=== PATIENT | male | born 1950 | race Caucasian/White ===

== ENCOUNTER 2018-06-26 10:38 | Emergency (ER) | payer MEDICARE ==
[2018-06-26 11:32] LABS: BILIRUBIN,URINE NEGATIVE (NEGATIVE); GLUCOSE, URINE (UA) NEGATIVE (NEGATIVE); KETONES,URINE (UA) NEGATIVE (NEGATIVE); LEUKOCYTE ESTERASE, URINE NEGATIVE (NEGATIVE); NITRITE,URINE NEGATIVE (NEGATIVE); OCCULT BLOOD,URINE MODERATE (NEGATIVE); PH,URINE 6.5 PH (5.0-7.5); PROTEIN,URINE NEGATIVE (NEGATIVE); UROBILINOGEN,URINE 0.2 (NORMAL) E.U./dL (NORMAL)
[2018-06-26 11:33] LABS: CLARITY,URINE CLEAR (CLEAR)
[2018-06-26 11:45] LABS: BASOPHILS % (AUTO) 0.5 %; EOSINOPHILS # (AUTO) 0.1 10^3/uL (0.0-0.7); EOSINOPHILS % (AUTO) 1.7 %; HGB - HEMOGLOBIN 14.2 g/dL (14.0-18.0); LYMPHOCYTES # (AUTO) 0.9 10^3/uL (1.5-3.5); LYMPHOCYTES % (AUTO) 18.6 %; MEAN CORPUSCULAR HEMOGLOBIN 30.8 pg (27.0-31.0); MEAN CORPUSCULAR HGB CONC 35.2 g/dL (32.0-36.0); MEAN CORPUSCULAR VOLUME 87.5 fL (80.0-94.0); MEAN PLATELET VOLUME 7.6 fL (7.4-11.4); MONOCYTES # (AUTO) 0.4 10^3/uL (0.0-1.0); NEUTROPHILS # (AUTO) 3.3 10^3/uL (1.5-6.6); NEUTROPHILS % (AUTO) 71.2 %; PLT - PLATELET COUNT 163 10^3/uL (130-450); RED BLOOD COUNT 4.63 10^6/uL (4.70-6.10); RED CELL DISTRIBUTION WIDTH 12.8 % (12.0-15.0); WHITE BLOOD COUNT 4.6 x10^3/uL (4.8-10.8)
[2018-06-26 11:46] LABS: ALBUMIN 4.3 g/dL (3.2-5.5); ALBUMIN/GLOBULIN RATIO 1.7 (1.0-2.2); BILIRUBIN,TOTAL 0.6 mg/dL (0.2-1.0); CALCIUM 8.5 mg/dL (8.5-10.3); CREATININE 0.8 mg/dL (0.6-1.2); TOTAL PROTEIN 6.8 g/dL (6.7-8.2)
[2018-06-26 11:53] LABS: INR 1.2 (0.8-1.2)
[2018-06-26 12:16] LABS: BACTERIA,URINE None Seen /HPF (None Seen); MUCUS,URINE Few Strands; RBC,URINE TNTC /HPF (0-5); SQUAMOUS EPITHELIAL CELL,UR RARE Squamous (<= Few)
[2018-06-26] MEDS ORDERED: IOVERSOL 320 100 ML VIAL IVP ONE ×2 (12:21→13:41)
--- NOTE | 2018-06-26 13:19 | ED Physician Documentation ---
History of Present Illness - Stated complaint Stated Complaint: R SIDE PX - Chief complaint Chief Complaint: General - Additonal information Additional information: 67-year-old male presents the emergency department with sudden onset of right flank pain which was described as severe pain that lasted 20 minutes. Presently, the patient has a dull ache in that area. The patient denies any radiation into his abdomen or Testicles. The patient denies any burning with urination, fevers or chills. The symptoms improved spontaneously on their own. No specific triggering factors. No other associated symptoms. Review of Systems Constitutional: denies: Fever, Chills, Myalgias Eyes: denies: Discharge Ears: denies: Ear pain Nose: denies: Congestion Throat: denies: Sore throat Cardiac: denies: Chest pain / pressure Respiratory: denies: Cough GI: reports: Other (flank pain). denies: Abdominal Pain : denies: Dysuria Skin: denies: Rash Musculoskeletal: denies: Neck pain Neurologic: denies: Generalized weakness PD PAST MEDICAL HISTORY - Past Medical History Past Medical History: Yes Cardiovascular: Pulmonary embolism, Other Other Past Medical History: hereditary clotting disorder, thrombin gene - Past Surgical History Past Surgical History: Yes - Present Medications Home Medications: Ambulatory Orders Medication Instructions Recorded Confirmed Apixaban [Eliquis] 5 mg PO BID 06/26/18 06/26/18 Citalopram [CeleXA] 10 mg PO DAILY 06/26/18 06/26/18 Hydrocodone/Acetaminophen 1 - 2 each PO Q6H PRN #20 tablet 06/26/18 [Hydrocodon-Acetaminophen 5-325] Ondansetron HCl [Zofran] 4 mg PO Q6HR PRN #30 tablet 06/26/18 - Allergies Allergies/Adverse Reactions: Allergies Allergy/AdvReac Type Severity Reaction Status Date / Time No Known Drug Allergies Allergy Verified 06/26/18 10:59 - Social History Does the pt smoke?: No Smoking Status: Never smoker Does the pt drink ETOH?: Yes ETOH Use: Wine, Beer Does the pt have substance abuse?: No - Immunizations Immunizations are current?: Yes - POLST Patient has POLST: No PD ED PE NORMAL - General General: Alert and oriented X 3, No acute distress - HEENT HEENT: Atraumatic, PERRL, EOMI, Ears normal - Neck Neck: Supple, no meningeal sign - Cardiac Cardiac: RRR, Strong equal pulses - Respiratory Respiratory: No respiratory distress, Clear bilaterally - Abdomen Abdomen: Soft, Non tender, Non distended - Back Back: No: No CVA TTP (Right flank pain) - Derm Derm: Normal color - Extremities Extremities: No deformity, No edema - Neuro Neuro: Alert and oriented X 3, Normal speech - Psych Psych: Normal affect Results - Vitals Vitals: Vital Signs - 24 hr 06/26/18 06/26/18 10:56 15:18 Temperature 36.7 C Heart Rate 58 L 58 L Respiratory 16 18 Rate Blood Pressure 112/75 120/69 O2 Saturation 98 98 Oxygen O2 Source Room air - EKG (time done) 11:22 Rate: Rate (enter#) Rhythm: Sinus bradycardia [place]ram: Normal Intervals: Normal MA QRS: Normal Ischemia: Normal ST segments - Labs Labs: Laboratory Tests 06/26/18 06/26/18 06/26/18 11:15 11:15 11:15 WBC 4.6 L RBC 4.63 L Hgb 14.2 Hct 40.5 L MCV 87.5 MCH 30.8 MCHC 35.2 RDW 12.8 Plt Count 163 MPV 7.6 Neut # (Auto) 3.3 Lymph # (Auto) 0.9 L Gallia # (Auto) 0.4 Eos # (Auto) 0.1 Baso # (Auto) 0.0 Absolute Nucleated RBC 0.00 Nucleated RBC % 0.1 PT 13.0 H INR 1.2 APTT 29.4 Sodium 137 Potassium 4.1 Chloride 108 Carbon Dioxide 26 Anion Gap 3.0 L BUN 21 H Creatinine 0.8 Estimated GFR (MDRD) 97 Glucose 140 H Calcium 8.5 Total Bilirubin 0.6 AST 22 ALT 37 Alkaline Phosphatase 59 Troponin I Total Protein 6.8 Albumin 4.3 Globulin 2.5 Albumin/Globulin Ratio 1.7 Lipase 33 Urine Color Urine Clarity Urine pH Ur Specific [place] Urine Protein Urine Glucose (UA) Urine Ketones Urine Occult Blood Urine Nitrite Urine Bilirubin Urine Urobilinogen Ur Leukocyte Esterase Urine RBC Urine WBC Ur Squamous Epith Cells Urine Bacteria Urine Mucus Ur Microscopic Review Urine Culture Comments 06/26/18 06/26/18 11:15 11:16 WBC RBC Hgb Hct MCV MCH MCHC RDW Plt Count MPV Neut # (Auto) Lymph # (Auto) Gallia # (Auto) Eos # (Auto) Baso # (Auto) Absolute Nucleated RBC Nucleated RBC % PT INR APTT Sodium Potassium Chloride Carbon Dioxide Anion Gap BUN Creatinine Estimated GFR (MDRD) Glucose Calcium Total Bilirubin AST ALT Alkaline Phosphatase Troponin I < 0.04 Total Protein Albumin Globulin Albumin/Globulin Ratio Lipase Urine Color YELLOW Urine Clarity CLEAR Urine pH 6.5 Ur Specific [place] 1.020 Urine Protein NEGATIVE Urine Glucose (UA) NEGATIVE Urine Ketones NEGATIVE Urine Occult Blood MODERATE H Urine Nitrite NEGATIVE Urine Bilirubin NEGATIVE Urine Urobilinogen 0.2 (NORMAL) Ur Leukocyte Esterase NEGATIVE Urine RBC TNTC H Urine WBC 4-5 Ur Squamous Epith Cells RARE Squamous Urine Bacteria None Seen Urine Mucus Few Strands Ur Microscopic Review INDICATED Urine Culture Comments NOT INDICATED - Rads (name of study) CT abd/pelvis Radiology: Final report received, See rad report (IMPRESSION: Distal right ureter stone near the ureterovesical junction measuring 4 mm in diameter. Minimal dilation of the right ureter and right renal pelvis. Nonspecific 8 mm hypodense lesion in the pancreatic head. This may represent focal pancreatic duct side branch dilation. Cystic neoplasm not entirely excluded. Consider further evaluation with pancreas protocol MRI. Cholelithiasis without CT evidence of acute cholecystitis. Mild prostatomegaly. ) PD MEDICAL DECISION MAKING - ED course ED course: The findings were discussed with the [facility] on-call physician. They will arrange for urgent urology follow-up and will help coordinate follow-up for the abnormality seen on CT scan regarding the pancreas. Presently, the patient's symptoms are under control and there is no evidence of a urinary tract infection or sepsis the patient appears appropriate for an attempt at outpatient management. The patient will be discharged home with pain medications. The patient will follow up with urology and primary care. I discussed the incidental findings and plan. They understand and agree. I discussed warning signs and recommended returning to the emergency department immediately for worsening or any concerns. Departure - Departure Disposition: 01 Home, Self Care Clinical Impression: Pancreatic lesion Urolithiasis Qualifiers: Urinary calculus location: ureter Qualified Code(s): N20.1 - Calculus of ureter Gallstone Qualifiers: Cholecystitis presence: without cholecystitis Biliary obstruction: without biliary obstruction Qualified Code(s): K80.20 - Calculus of gallbladder without cholecystitis without obstruction Condition: Good Instructions: Kidney Stones Identify, ED Stone Renal W Colic Follow-Up: CARYN AUSTIN MD [Primary Care Provider] - Within 3 Days (Please ask your primary care to arrange for an outpatient MRI to further assess the findings seen on CT scan regarding your pancreas) Prescriptions: Ondansetron HCl [Zofran] 4 mg PO Q6HR PRN #30 tablet PRN Reason: Nausea / Vomiting Hydrocodone/Acetaminophen [Hydrocodon-Acetaminophen 5-325] 1 - 2 each PO Q6H PRN #20 tablet PRN Reason: pain Comments: [facility] should be contacting you tomorrow to schedule an appointment with urology to further assess the findings seen today. Please return to the emergency department for worsening symptoms or any concerns
--- NOTE | 2018-06-26 13:22 | CT Report ---
Reason: Flank pain, clotting disorder Procedure Date: 06/26/2018 Accession Number: [id number] / [id number] Procedure: CT - Abdomen/Pelvis W/ CPT Code: FULL RESULT: EXAM: CT ABDOMEN AND PELVIS EXAM DATE: 06/26/2018 01:01 PM. CLINICAL HISTORY: Flank pain, clotting disorder. COMPARISONS: None available. TECHNIQUE: Routine helical CT imaging was performed through the abdomen and pelvis. IV contrast: 90 mL Optiray 320. Enteric contrast: No. Reconstructions: Coronal and sagittal. In accordance with CT protocol optimization, one or more of the following dose reduction techniques were utilized for this exam: automated exposure control, adjustment of mA and/or KV based on patient size, or use of iterative reconstructive technique. FINDINGS: Lung Bases: Patchy atelectasis/scarring in the lingula. Liver: Normal. No masses. Gallbladder/Bile Ducts: There are multiple small calcified stones in the gallbladder. No gallbladder wall thickening or pericholecystic fluid. No intrahepatic or extrahepatic biliary duct dilation. Spleen: Normal. Pancreas: There is a nonspecific 8 mm hypodense lesion in the pancreatic head on image 31 of series 3. The pancreas is otherwise unremarkable. No pancreatic duct dilation. Adrenal Glands: Normal. Kidneys: There is a calcified stone in the distal right ureter near the right ureterovesical junction measuring 4 mm in diameter (image 79 of series 3). There is minimal dilation of the right ureter and right renal pelvis. No hydronephrosis or nephrolithiasis of the left kidney. There is a well-circumscribed, hypodense, exophytic lesion arising from the superior pole of the left kidney measuring 4.2 x 4.0 cm in diameter with water density Hounsfield units, likely a cyst. Smaller cortical hypodense lesions are seen in the superior pole of the right kidney and inferior pole of the left kidney, likely additional cysts, although too small to characterize by CT. Peritoneal Cavity/Bowel: Nonobstructive bowel gas pattern. No free air or free fluid. The appendix is well visualized and normal. Pelvic Organs: The prostate gland is mildly enlarged and heterogeneous. Dystrophic calcifications in the prostate gland. The prostate measures approximately 4.5 x 5.0 x 5.3 cm. Vasculature: Few calcified plaque scattered throughout the abdominal aorta without evidence of aneurysm. Bones: No acute fracture or dislocation. Small 10 mm sclerotic focus in the L2 vertebral body may represent a bone island. Other: None. IMPRESSION: Distal right ureter stone near the ureterovesical junction measuring 4 mm in diameter. Minimal dilation of the right ureter and right renal pelvis. Nonspecific 8 mm hypodense lesion in the pancreatic head. This may represent focal pancreatic duct side branch dilation. Cystic neoplasm not entirely excluded. Consider further evaluation with pancreas protocol MRI. Cholelithiasis without CT evidence of acute cholecystitis. Mild prostatomegaly. RADIA
[2018-06-26] MEDS ORDERED: fentaNYL 100 MCG/2 ML VIAL IVP STA (13:29)
[2018-06-26] MEDS ORDERED: KETOROLAC 15 MG/ML VIAL IVP STA (13:29)
[2018-06-26] MEDS ORDERED: ONDANSETRON 4 MG/2 ML VIAL IVP STA (13:29)
[2018-06-26] MEDS ORDERED: SODIUM CHLORIDE 0.9% 1,000 ML IV ONE (13:29)
[2018-06-26 16:08] VITALS: BP 128/73
== END 2018-06-26 16:07 | disposition home or self-care (01) ==
LOC: ED 10:38
DX: N20.1 Calculus of ureter (principal); K86.9 Disease of pancreas, unspecified; K80.20 Calculus of gallbladder without cholecystitis without obstruction; N40.0 Benign prostatic hyperplasia without lower urinary tract symptoms; I26.99 Other pulmonary embolism without acute cor pulmonale; R00.1 Bradycardia, unspecified; Z79.01 Long term (current) use of anticoagulants
CPT/HCPCS: 36415; 74177; 80053; 81001; 83690; 84484; 85025; 85610; 85730; 93005; 96360; 99283; 99284; Q9967; 81003; 87086

== ENCOUNTER 2018-08-02 15:41 | Outpatient (CLI) | payer MEDICARE, OTHER ==
--- NOTE | 2018-08-03 16:42 | Ultrasound Report ---
Reason: NONTOXIC MULTINODULAR GOITER Procedure Date: 08/02/2018 Accession Number: [id number] / [id number] Procedure: US - Head or Neck Soft Tissue CPT Code: FULL RESULT: EXAM: THYROID ULTRASOUND EXAM DATE: 08/02/2018 04:17 PM. CLINICAL HISTORY: Nontoxic multinodular goiter. COMPARISON: None. TECHNIQUE: Real time sonographic imaging of the thyroid was performed by the operations planner. Multiple medicare sales representative static images were saved for review. FINDINGS: THYROID GLAND: Right Lobe: 5.8 x 1.6 x 2.1 cm, volume 10.4 cc. Normal background echotexture. Right Lobe Nodules: The lower pole of the right thyroid gland demonstrates a 1.0 x 0.5 x 0.8 cm hypoechoic nodule without increased vascularity or overt calcifications. A second 0.6 x 0.4 x 0.3 cm nodule demonstrates vascularity by color Doppler and is isoechoic without calcifications. Left Lobe: 4.2 x 1.6 x 1.9 cm, volume 6.4 cc. Normal background echotexture. Left Lobe Nodules: 1.4 x 1.3 x 1.1 cm hypervascular solid nodule with punctate calcifications, midpole. Isthmus: 0.3 cm AP. Isthmic Nodules: None. LYMPH NODES: No adenopathy demonstrated in the central or lateral compartment. OTHER: None. IMPRESSION: Dominant left thyroid nodule with features that warrant tissue sampling by fine-needle aspiration. Please note that the thyroid parenchymal background generally is relatively homogeneous. Management recommendations are based on 2015 [place] [employer] Management Guidelines for Adult Patients with Thyroid Nodules and Differentiated Thyroid Cancer. RADIA
== END 2018-08-02 15:42 | disposition home or self-care (01) ==
LOC: DI 15:41
PROVIDERS: ATTEND Internal Medicine
DX: E04.2 Nontoxic multinodular goiter (principal)
CPT/HCPCS: 76536

== ENCOUNTER 2021-03-17 10:12 | Outpatient (CLI) | payer MEDICARE, OTHER ==
--- NOTE | 2021-03-17 11:04 | SLEEP CARE CONSULTATION ---
Information from patient questionnaire entered by Jeni Cooley. I have reviewed and concur with the information entered by Jeni Cooley. This document represents the service I personally performed and the decisions made by me, Mery Rebollar ARNP. History of Present Illness Service Date and Time: 03/17/2021 1012 Reason for Visit: New patient Chief Complaint: reports: Insomnia, Unrefreshed sleep, Snoring. denies: Observed pauses in breathing Date of Onset: for years Usual bedtime: 12 am Time it takes to fall asleep: 30 minutes Snores at night: Yes Observed to quit breathing while asleep: Yes Sleeps alone due to snoring: No Number of times waking at night: 2-3 Reasons for waking at night: reports: Snoring, Bathroom, Other (unknown reasons). denies: Choking, Gasping for air Toss, Turn, or Twitch while sleeping: No Recalls having dreams: No (rarely) Usually gets out of bed at: 10:30 am Feels refreshed in the morning: No Morning headache: No Sleepy or fatigued during the day: Yes Ever fallen asleep while driving: No Takes day naps: Yes (occasionally; 1-2 times a month) Dreams during day naps: No Prior sleep studies: Yes Year and Where: 40 years ago in [place] - unknown Additional HPI information: I had the pleasure of seeing YOHANA RESENDIZ today regarding the possibility of him having a sleep disorder. His current complaints are insomnia and unrefreshed sleep. He states that he tells his often in the morning that he doesn't feel he sleeps well. She sees him sleeping and is not sure why he feels this way. He wakes up feeling tired. He rarely remembers his dreams. He does snore which has improved with weight loss from 261 to 224 pounds. He states when he was much younger he did use a CPAP but he states he was more overweight. He stopped using it after 2-4 years, this was 40 years ago. His has not witnessed current pauses in breathing or gasping for air. He thinks his current snoring happens when he is on his back. His will poke him in the ribs when he snores 2-3 times a week. He wakes up a few times a night and sometimes it can take up to an hour to go to sleep. - Parasomnia Symptoms Ever been unable to move upon waking from sleep: No Walks in sleep: No Talks in sleep: No Ever acted out dreams in sleep: No Ever felt weak in the knees when startled or emotional: No Bothered by creepy, crawly, restless sensations in legs: Yes (sometimes; 2 times a month at night before bedtime) Problems with memory or concentration: Yes (memory) Subjective Initial [place] Sleepiness Scale score: 8 (in 2020) Past Medical History Past Medical History: reports: Anxiety, Depression, Other (blood clotting disorder) Social History The patient's occupation is a Retired. Patient is and lives in [place]. Have you smoked in the past 12 months: No Alcohol use: Yes Alcohol amount and frequency: 1-2 drinks 4 times a week Caffeine use: No Family History Family history of sleep disordered breathing: No Allergies and Home Medications Drug allergies reviewed: Yes (NKDA) Home medication list reviewed: Yes Allergy and home medication list: Rosuvastatin Aspirin Citalopram Apixaban Vitamin D DHEA Chromium Berberine Vitamin B12 Vitamin C Turmeric Basic Preventative 2 Fish oil QH-Absorb Glucosamine and Chondroitin Review of Systems Weight gain over past 5 years: 40 Weight loss over past 5 years: 40 Cardiovascular: denies: high blood pressure Urinary: reports: frequency Neurological: denies: headaches Psychiatric: reports: anxiety, depression Ear/Nose/Throat: reports: sinus problems. denies: tonsillectomy Physical Exam Blood Pressure: 146/75 Cuff size: wrist Heart Rate: 54 O2 Saturation: 98 Height: 5 ft 10 in Weight: 224 lb Body Mass Index: 32.1 BMI Classification: Obese Neck circumference: 17 (inches) Mouth and throat: narrow oropharynx Soft palate: long Hard palate: normal Uvula: normal Uvula visualization: 50% Mallampati Class II Tongue: enlarged in size with teeth rodríguez on lateral edges Tonsils: small Heart: regular rate and rhythm Lungs: clear bilaterally Impression and Plan 1. Suspected Obstructive Sleep Apnea-Hypopnea Syndrome, as possibly previously diagnosed when younger and as suggested by a history of loud and irregular snoring, frequent awakening during the night, unrefreshed sleep, and cognitive impairment. Narrow oropharynx and obesity are common predisposing factors for obstructive sleep apnea-hypopnea syndrome. I recommend proceeding to polysomnography to confirm the diagnosis and to assess severity. If the patient has significant sleep disordered breathing, a manual CPAP titration study will also be performed to find the optimal treatment pressure. I informed the patient of what the sleep studies involve and after some discussion, obtained agreement to proceed. The pathophysiology of obstructive sleep apnea-hypopnea syndrome was discussed with the patient and health risks of cardiovascular and cerebrovascular disease if not treated. Risks of drowsy driving discussed in detail and patient advised to avoid long distance driving and to wool puller at the first sign of drowsiness. Patient agreed to plan. * Schedule polysomnography +- manual CPAP titration study and return in 1-2 weeks after the study to discuss result and initiate therapy. * Avoid long distance driving or driving when feeling sleepy. * Avoid alcohol, sedative and muscle relaxant around bedtime. * Attempt to lose weight. * Review instructions provided by trained office staff on how to prepare for the sleep study. * Return for follow-up after sleep study completed. Counseling Topics: Weight loss health impact Visit Type: In Office Time Spent with Patient (minutes): 38 Provider Statement: I spent 100% of the Face to Face Visit with the patient with greater than 50% spent counseling the patient and coordination of care.
[2021-03-17 11:05] VITALS: BP 146/75
== END 2021-03-17 10:13 | disposition home or self-care (01) ==
LOC: SC 10:12
PROVIDERS: ATTEND Nurse Practitioner Family
DX: R06.83 Snoring (principal); G47.8 Other sleep disorders; R41.89 Other symptoms and signs involving cognitive functions and awareness; E66.9 Obesity, unspecified; Z68.32 Body mass index [BMI] 32.0-32.9, adult
CPT/HCPCS: 99203; G0463; 99212

== ENCOUNTER 2021-06-02 17:08 | Outpatient (CLI) | payer MEDICARE, OTHER ==
--- NOTE | 2021-06-02 17:01 | SLEEP CARE CONSULTATION ---
Information from patient questionnaire entered by Yony Smith MA. I have reviewed and concur with the information entered by Yony Smith MA. This document represents the service I personally performed and the decisions made by , Mery Rebollar ARNP. History of Present Illness Service Date and Time: 06/02/2021 1620 Initial [place] Sleepiness Scale score: 8 (in 2020) Current [place] Sleepiness Scale score: 8 Additional HPI information: YOHANA RESENDIZ returns via video Telehealth visit with spouse for follow up and results of the recently performed polysomnography at [facility] 04-16-21. I explained the pathophysiology behind obstructive sleep apnea. We then spent quite a bit of time discussing different treatment options. For mild obstructive sleep apnea, surgery and oral appliance are alternatives to nasal CPAP therapy but in moderate or severe cases, nasal CPAP is the most effective and reliable treatment. Because apnea is primarily in supine position, then positional management therapy could be effective. I reviewed the impact of weight changes on sleep apnea and strongly recommended losing weight. I explained how CPAP machine works and what to expect when using the machine. Patient was cautioned about risks of drowsy driving until sleepiness symptoms resolve. Sleep Study - Results Type of Sleep Study: Polysomnography Prior sleep studies: Yes Year and Where: 40 years ago in [place] - unknown Polysomnography/Home Sleep Study results: Interpretation: ln-laboratory Attended Nocturnal Polysomnography. Tho patient had minimally reduced sleep efficiency. The sleep architecture was abnormal for sleep fragmentation and lack of slow wave sleep. Respiratory monitoring showed moderate obstructive sleep apnea-hypopnea (AHI-19.2) associated with frequent arousals oxyhemoglobin desaturation and moderate hypoxia (shakira oxygen s aturation of 78.0%). The respiratory events occurred almost exclusively during supine sleep. Snore was light to moderate in intensity, Cardiac rhythm was normal sinus rhythm. No abnormal behavior (parasomnia) observed during the night. There was mild periodic leg movement of sleep. Allergies and Home Medications Home medication list reviewed: Yes (no changes) Review of Systems Review of systems same as previous: Yes (no changes) Physical Exam Vital signs obtained and entered by: Telehealth visit to reduce exposure during Covid pandemic Height: 5 ft 10 in Impression and Plan 1. Obstructive Sleep Apnea-Hypopnea Syndrome, moderate, with lowest oxygen saturation of 78%. Obviously this is the cause of the patients symptoms of unrefreshed sleep, and excessive daytime sleepiness. Positive pressure therapy could benefit anxiety and depression. Patient is currently in [place] and will not be back in the area till August. He would like to wait until that time before he starts the CPAP machine. He will give us a call so that we may get him set up on a CPAP and then do a follow-up later. Patient was advised to sleep non-supine since his sleep apnea seems to be more severe on his back. Gildardo donnelly voiced understanding and agreement with plan of care. 2. Periodic limb movement, mild, that did not fragment patients sleep. Periodic limb movement of sleep (PLMS) is characterized by episodes of repetitive limb movements that occur during sleep and usually involve the lower limbs. The etiology is unknown but can be associated with restless leg syndrome (RLS), low serum ferritin level below 50 to 75mcg / L, neuropathy, spinal cord diseases, kidney disease, rheumatological disorders, narcolepsy, obstructive sleep apnea, and REM sleep behavior disorder. Sleep hygiene methods can also improve sleep as well as lifestyle changes such as regular exercise. Patient was advised that no treatment is needed at this time. If symptoms increase, then further evaluation is indicated. * Patient to call when back in area to start CPAP * Continue to try to lose weight. * Avoid supine sleep until using CPAP. * The patient is again cautioned about driving until sleepiness completely resolves. * Return one month after CPAP obtained. I will assess response to therapy and compliance at that time. Counseling Topics: Weight loss health impact Visit Type: Telehealth Phone Patient Location: Home Location of Provider: Office Patient agrees and consents to this telehealth visit type: Yes Patient agrees to have their insurance billed: Yes Time Spent with Patient (minutes): 10 Provider Statement: I spent 100% of the Telehealth Phone Call with the patient with greater than 50% spent counseling the patient and coordination of care.
== END 2021-06-02 17:09 | disposition home or self-care (01) ==
LOC: SC 17:08
PROVIDERS: ATTEND Nurse Practitioner Family
DX: G47.33 Obstructive sleep apnea (adult) (pediatric) (principal); G47.61 Periodic limb movement disorder

== ENCOUNTER 2021-11-17 10:32 | Outpatient (CLI) | payer MEDICARE, OTHER ==
[2021-11-17 15:22] LABS: THYROID STIMULATING HORMONE 1.8 uIU/mL (0.34-5.60)
[2021-11-17 15:24] LABS: FREE T3 2.97 pg/mL (2.5-3.9); FREE T4 (FREE THYROXINE) 0.59 ng/dL (0.58-1.64)
[2021-11-17 15:27] LABS: ALBUMIN 3.8 g/dL (3.2-5.5); ALBUMIN/GLOBULIN RATIO 1.7 (1.0-2.2); ALKALINE PHOSPHATASE 48 IU/L (42-121); ALT ALANINE AMINOTRANSFERASE 24 IU/L (10-60); AST ASPARTATE AMINOTRANSFERASE 17 IU/L (10-42); BILIRUBIN,TOTAL 0.6 mg/dL (0.2-1.0); BUN - BLOOD UREA NITROGEN 29 mg/dL (6-20); CALCIUM 8.3 mg/dL (8.5-10.3); CARBON DIOXIDE - CO2 23 mmol/L (21-32); CHLORIDE 108 mmol/L (101-111); CHOL/HDL RATIO 2.6 (<5.0); CHOLESTEROL 170 mg/dL; CREATININE 0.8 mg/dL (0.6-1.2); CRP HIGH SENSITIVITY 1.3 mg/L; GFR - MDRD 96 (>89); GLUCOSE 128 mg/dL (70-100); HDL CHOLESTEROL 65 mg/dL; LDL CHOLESTEROL,CALCULATED 90 mg/dL; LDL/HDL RATIO 1.4 (<3.6); POTASSIUM 4.2 mmol/L (3.5-5.0); SODIUM 138 mmol/L (135-145); TRIGLYCERIDES 74 mg/dL; VLDL CHOLESTEROL 15 mg/dL
[2021-11-17 21:30] LABS: ESTIMATED AVERAGE GLUCOSE 123 mg/dL (70-100); HEMOGLOBIN A1c% 5.9 % (4.27-6.07)
[2021-11-18 10:46] LABS: HOMOCYSTEINE 9.5 umol/L (<11.4)
== END 2021-11-17 10:33 | disposition home or self-care (01) ==
LOC: LAB.S 10:32
PROVIDERS: ATTEND Naturopath
DX: E78.5 Hyperlipidemia, unspecified (principal); R73.03 Prediabetes; R79.82 Elevated C-reactive protein (CRP); R94.5 Abnormal results of liver function studies; E66.9 Obesity, unspecified; E34.9 Endocrine disorder, unspecified; R79.89 Other specified abnormal findings of blood chemistry; E04.2 Nontoxic multinodular goiter
CPT/HCPCS: 36415; 80053; 80061; 81599; 82626; 83036; 83090; 83525; 83721; 84439; 84443; 84481; 86141

== ENCOUNTER 2022-01-09 15:03 | Outpatient (CLI) | payer MEDICARE, OTHER ==
[2022-01-09 18:07] LABS: ALBUMIN 4.1 g/dL (3.2-5.5); ALBUMIN/GLOBULIN RATIO 1.4 (1.0-2.2); BILIRUBIN,TOTAL 0.6 mg/dL (0.2-1.0); CREATININE 0.9 mg/dL (0.6-1.2)
== END 2022-01-09 15:04 | disposition home or self-care (01) ==
LOC: LAB.S 15:03
PROVIDERS: ATTEND Family Medicine
DX: R94.4 Abnormal results of kidney function studies (principal); E83.51 Hypocalcemia; R77.9 Abnormality of plasma protein, unspecified
CPT/HCPCS: 36415; 80053; 81001; 82306; 82330; 83970

== ENCOUNTER 2022-01-11 20:06 | Outpatient (CLI) | payer MEDICARE, OTHER ==
[2022-01-11 20:23] LABS: BILIRUBIN,URINE NEGATIVE (NEGATIVE); GLUCOSE, URINE (UA) NEGATIVE (NEGATIVE); KETONES,URINE (UA) NEGATIVE (NEGATIVE); LEUKOCYTE ESTERASE, URINE NEGATIVE (NEGATIVE); NITRITE,URINE NEGATIVE (NEGATIVE); OCCULT BLOOD,URINE NEGATIVE (NEGATIVE); PROTEIN,URINE NEGATIVE (NEGATIVE); UROBILINOGEN,URINE 0.2 (NORMAL) E.U./dL (NORMAL)
[2022-01-11 20:26] LABS: CLARITY,URINE CLEAR (CLEAR)
== END 2022-01-11 20:07 | disposition home or self-care (01) ==
LOC: LAB.R 20:06
PROVIDERS: ATTEND Family Medicine
DX: E83.51 Hypocalcemia (principal); R94.4 Abnormal results of kidney function studies; R77.9 Abnormality of plasma protein, unspecified
CPT/HCPCS: 81001; 81003; 87086

== ENCOUNTER 2022-02-19 12:00 | Outpatient (CLI) | payer MEDICARE, OTHER ==
--- NOTE | 2022-02-19 12:02 | SLEEP CARE CONSULTATION ---
Information from patient questionnaire entered by Yony Smith MA. I have reviewed and concur with the information entered by Yony Smith MA. This document represents the service I personally performed and the decisions made by , Mery Rebollar ARNP. History of Present Illness Service Date and Time: 02/19/2022 1140 Previous diagnosis: Moderate, Obstructive Sleep Apnea-Hypopnea Syndrome AHI: 19.2 (in 2020) Reason for follow up: other (8 month fu; LAST SEEN 05/2021, POSITIONAL THERAPY, CPAP RX IF POS THERAPY WASNT WORKING, ) Accompanied by: Spouse Prior sleep studies: Yes Year and Where: 40 years ago in [place] - unknown Type of Sleep Study: Polysomnography HPI additional information: YOHANA RESENDIZ was diagnosed to have moderate, AHI 19.2, obstructive sleep apnea-hypopnea syndrome and returns via video telehealth visit today for Positional therapy three month follow-up and starting CPAP therapy. Sleep Study - Results Type of Sleep Study: Polysomnography Prior sleep studies: Yes Year and Where: 40 years ago in [place] - unknown CPAP Compliance Data Compliance data discussion: Patient has tried positional therapy but find he is turning onto his back more than staying on sides. His will push him back onto his sides she sees him on his back. Subjective Initial [place] Sleepiness Scale score: 8 (in 2020) Current [place] Sleepiness Scale score: 6 Allergies and Home Medications Home medication list reviewed: Yes (no changes) Allergy and home medication list: Allergies No Known Drug Allergies Allergy (Verified 06/26/18 10:59) Review of Systems Review of systems same as previous: Yes (no changes) Physical Exam Vital signs obtained and entered by: Vale SMITH CMA AAWY, PRE TELEMED APPT. Height: 5 ft 10 in Weight: 250 lb (pt reported) Body Mass Index: 35.9 BMI Classification: Obese Impression and Plan 1. Obstructive Sleep Apnea-Hypopnea Syndrome, moderate. Patient has been doing positional therapy until he could bet back to town. He has not had much luck in staying off of his back and he would like to start CPAP therapy. Positive pressure therapy could benefit anxiety and depression. The patient will be started on nasal autoCPAP therapy with pressure set at 4-15 cmH2O. Compliance guidelines also reviewed. A copy of compliance guidelines will be given for reference at check out. Because the apnea is more severe supine, I instructed to avoid sleeping supine using pillow positioning until able to start CPAP use. Patient states he does travel a lot and would like to start out with a travel CPAP machine that he can take with him and set up the larger main machine. I advised him that insurance does not usually cover the cost of a travel machine and he was okay with this. I will make a prescription for his travel CPAP machine and have it sent to him. * Nasal auto CPAP therapy, pressure at 4-15 cm H2O. * Prescription for portable cpap device for traveling * Attempt to lose weight. * Avoid alcohol consumption near bedtime. * Avoid supine sleep until using CPAP. * The patient is again cautioned about driving until sleepiness completely resolves. * Return one month after CPAP obtained. I will assess response to therapy and compliance at that time. Counseling Topics: Weight loss health impact Visit Type: Telehealth Video ([phone]) Video Type: D[employer] Patient Location: Home Location of Provider: Office Patient agrees and consents to this telehealth visit type: Yes Patient agrees to have their insurance billed: Yes Time Spent with Patient (minutes): 24 Provider Statement: I spent 100% of the Telehealth Video Call with the patient with greater than 50% spent counseling the patient and coordination of care.
== END 2022-02-19 12:01 | disposition home or self-care (01) ==
LOC: SC 12:00
PROVIDERS: ATTEND Nurse Practitioner Family
DX: G47.33 Obstructive sleep apnea (adult) (pediatric) (principal); E66.9 Obesity, unspecified; Z68.35 Body mass index [BMI] 35.0-35.9, adult

== ENCOUNTER 2022-06-23 16:14 | Outpatient (CLI) | payer MEDICARE, OTHER ==
--- NOTE | 2022-06-23 11:17 | SLEEP CARE CONSULTATION ---
Information from patient questionnaire entered by Brenda Palacios. I have reviewed and concur with the information entered by Brenda Palacios. This document represents the service I personally performed and the decisions made by , Mery Rebollar ARNP. History of Present Illness Service Date and Time: 06/23/2022 1100 Previous diagnosis: Moderate, Obstructive Sleep Apnea-Hypopnea Syndrome AHI: 19.2 (in 2020) Reason for follow up: first compliance (set up 03/15/22) Equipment type: CPAP (ResMed Airsense 11) Equipment obtained from: [employer] ([employer]) Mask style: Full face Mask brand: Resmed (Airtouch F20) Backup mask available: No (will keep old mask when replaced) Last cushion change: <30 days Prior sleep studies: Yes Year and Where: 40 years ago in [place] - unknown Type of Sleep Study: Polysomnography HPI additional information: YOHANA RESENDIZ was diagnosed to have moderate, AHI 19.2, obstructive sleep apnea- hypopnea syndrome and returns via video telehealth visit today for CPAP therapy first compliance follow-up. Sleep Study - Results Type of Sleep Study: Polysomnography Prior sleep studies: Yes Year and Where: 40 years ago in [place] - unknown CPAP Compliance Data - Data Reviewed with Patient Average duration of nightly device use: 8 HRS 13 MIN Compliance rate %: 92 (04/23/22-06/21/22; 57/60 days used) Current pressure setting (cmH2O): 15-20 (median 16.0, avg 18.8, max 19.5) Average residual AHI: 4.2 Central apnea: 0.9 Obstructive apnea: 2.2 Hypopnea: 0.9 Subjective Missed days of use due to: reports: travel (in [place]) Patient concerns: reports: dry mouth, nose, throat (dry mouth sometimes, may be oral venting ). denies: aerophagia, mask discomfort, air blowing in eyes, mask leak noise, condensation in mask/hose, nasal congestion, epistaxis Observed to snore while using device: No Current pressure setting perceived as: comfortable On therapy, patient: reports: sleeping better, awakening more refreshed, being more awake and alert during the day, more rested overall. denies: drowsiness while driving Initial [place] Sleepiness Scale score: 8 (in 2020) Current [place] Sleepiness Scale score: 6 (06/23/22) Allergies and Home Medications Drug allergies reviewed: Yes (NKDA) Home medication list reviewed: Yes (no changes) Review of Systems Review of systems same as previous: Yes (no changes) Physical Exam Vital signs obtained and entered by: via phone Height: 5 ft 10 in (per pt ) Weight: 250 lb (per pt) Body Mass Index: 35.9 BMI Classification: Obese Impression and Plan 1. Obstructive Sleep Apnea-Hypopnea Syndrome, moderate, with good treatment compliance and good apnea control. On CPAP therapy, the patient has better sleep quality and is more rested overall. Patient has significant improvement of their sleep apnea and are satisfied with current CPAP therapy. Patient has been having a little dry mouth when his mouth comes open at night. He is using a fullface mask, AirTouch 20 by [employer]. I discussed adjusting his humidity as needed to make sure he states moist and he voiced understanding. Patient's apnea severity and rationale for treatment to reduce apnea, improve sleep quality and reduce cardiovascular and cerebrovascular events was reviewed. I also reviewed the benefit of consistent device use of CPAP for depression/anxiety. 2. Obesity, unspecified. Currently patients BMI is 35.9. Obesity increases the risk of apnea, CPAP pressure requirements and overall health risks especially cardiovascular and diabetes. Thus patient is advised to lose weight. * Continue auto CPAP pressure at 15-20 cmH2O * Notify me if snoring with mask or feeling that the pressure is too much or too little * Attempt to lose weight * Call this office if any problems using CPAP * Return for follow up in 3 months, or sooner if concerns arise Counseling Topics: Spare mask, Weight loss health impact Visit Type: Telehealth Video Video Type: [employer] Patient Location: Home ([place]) Location of Provider: Office Patient agrees and consents to this telehealth visit type: Yes Patient agrees to have their insurance billed: Yes Time Spent with Patient (minutes): 21 Provider Statement: I spent 100% of the Telehealth Video Call with the patient with greater than 50% spent counseling the patient and coordination of care.
== END 2022-06-23 16:15 | disposition home or self-care (01) ==
LOC: SC 16:14
PROVIDERS: ATTEND Nurse Practitioner Family
DX: G47.33 Obstructive sleep apnea (adult) (pediatric) (principal); E66.9 Obesity, unspecified; Z68.35 Body mass index [BMI] 35.0-35.9, adult

== ENCOUNTER 2022-10-20 11:42 | Outpatient (CLI) | payer MEDICARE, OTHER ==
--- NOTE | 2022-10-20 10:47 | SLEEP CARE CONSULTATION ---
Information from patient questionnaire entered by Brenda Palacios. I have reviewed and concur with the information entered by Brenda Palacios. This document represents the service I personally performed and the decisions made by , Mery Rebollar ARNP. History of Present Illness Service Date and Time: 10/20/2022 1040 Previous diagnosis: Moderate, Obstructive Sleep Apnea-Hypopnea Syndrome AHI: 19.2 (in 2020) Reason for follow up: three month (F/U) Equipment type: CPAP (RESMED Airsense 11, s/u 02/2022) Equipment obtained from: [employer] ([employer]) Mask style: Full face (medium cushion) Mask brand: Resmed (AirTouch F20) Backup mask available: Yes (old mask) Last cushion change: 10 days ago Prior sleep studies: Yes Year and Where: 40 years ago in [place] [facility] Type of Sleep Study: Polysomnography HPI additional information: YOHANA RESENDIZ was diagnosed to have moderate, AHI 19.2, obstructive sleep apnea- hypopnea syndrome and returns via telehealth visit today for CPAP therapy three month follow-up. Sleep Study - Results Type of Sleep Study: Polysomnography Prior sleep studies: Yes Year and Where: 40 years ago in [place] - [facility] CPAP Compliance Data - Data Reviewed with Patient Average duration of nightly device use: 8 hours 22 minutes Compliance rate %: 97 (87/90 days used) Current pressure setting (cmH2O): 15-20 Average residual AHI: 3.8 Central apnea: 1.0 Obstructive apnea: 1.7 Hypopnea: 0.8 Average large leak: 1.4 l/min Subjective Missed days of use due to: reports: travel (sometimes no electricity available during the trip) Patient concerns: reports: dry mouth, nose, throat (dry mouth; resolved with drink of water). denies: aerophagia, mask discomfort, air blowing in eyes, mask leak noise, condensation in mask/hose, nasal congestion, epistaxis Observed to snore while using device: No Current pressure setting perceived as: comfortable On therapy, patient: reports: sleeping better, awakening more refreshed, being more awake and alert during the day, more rested overall. denies: drowsiness while driving Initial [place] Sleepiness Scale score: 8 (in 2020) Current [place] Sleepiness Scale score: 7 (10/20/22) Allergies and Home Medications Known drug allergies: No Drug allergies reviewed: Yes Home medication list reviewed: Yes (no changes) Allergy and home medication list: Allergies No Known Drug Allergies Allergy (Verified 10/19/22 16:16) Review of Systems Review of systems same as previous: Yes (no changes) Physical Exam Vital signs obtained and entered by: BRENDA Chua MA Height: 5 ft 10 in (per pt ) Weight: 260 lb (PER PT) Body Mass Index: 37.3 BMI Classification: Obese Impression and Plan 1. Obstructive Sleep Apnea-Hypopnea Syndrome, moderate, with good treatment compliance and good apnea control. On CPAP therapy, the patient has better sleep quality and is more rested overall. Patient has significant improvement of their sleep apnea and is satisfied with current CPAP therapy. Patient does get a little bit of dry mouth but he states a small drink of water first thing in the morning resolves it. Patient's apnea severity and rationale for treatment to reduce apnea, improve sleep quality and reduce cardiovascular and cerebrovascular events was reviewed. I also reviewed the benefit of consistent device use of CPAP for depression/anxiety. 2. Obesity, unspecified. Currently patients BMI is 37.3. Obesity increases the risk of apnea, CPAP pressure requirements and overall health risks especially cardiovascular and diabetes. Thus patient is advised to lose weight. * Continue auto CPAP pressure at 15-20 cmH2O * Notify me if snoring with mask or feeling that the pressure is too much or too little * Attempt to lose weight * Call this office if any problems using CPAP * Return for follow up in 1 year, or sooner if concerns arise Counseling Topics: Spare mask, Weight loss health impact Visit Type: Telehealth Phone Video Type: Ari Patient Location: Home Location of Provider: Office Patient agrees and consents to this telehealth visit type: Yes Patient agrees to have their insurance billed: Yes Time Spent with Patient (minutes): 14 Provider Statement: I spent 100% of the Telehealth Phone Call with the patient with greater than 50% spent counseling the patient and coordination of care.
== END 2022-10-20 11:43 | disposition home or self-care (01) ==
LOC: SC 11:42
PROVIDERS: ATTEND Nurse Practitioner Family
DX: G47.33 Obstructive sleep apnea (adult) (pediatric) (principal); E66.9 Obesity, unspecified; Z68.37 Body mass index [BMI] 37.0-37.9, adult